=== PATIENT | male | born 1930 | race Caucasian/White ===

== ENCOUNTER 2019-07-06 15:27 | Inpatient (IN) | payer MEDICARE, BC ==
[2019-07-06] MEDS ORDERED: Sodium Chloride 0.9% 2.5 ML Syringe FLUSH PRN (15:35)
[2019-07-06] MEDS ORDERED: Ondansetron 4 MG/2 ML SDV IVPUSH PRN (15:35)
[2019-07-06] MEDS ORDERED: Acetaminophen 325 MG Tab PO PRN (15:35)
[2019-07-06] MEDS ORDERED: Albuterol/Ipratropium 3.0-0.5 MG/3 ML Neb Soln NEB PRN (15:35)
--- NOTE | 2019-07-06 15:40 | PCM.HP.2 ---
<Kelly aBca M - Last Filed: 07/06/19 16:52> H&P History of Present Illness - General Date of Service: 07/06/19 Admit Problem/Dx: Admission Diagnosis/Problem Admission Diagnosis/Problem Pneumonia Source of Information: Patient, Family (Son, Phillip at bedside), Old Records History Limitations: Reports: No Limitations - History of Present Illness Initial Comments - Free Text/Narative: This 88 noa old male with pmh of Dm type 2, HTN, hyperlipidemia, CKD, CAD, PVD with stenting to R leg and grafting to L leg presented initially to his PCP due to not feeling well. He reports he hasn't felt well for over a year, but reports the last 6 weeks he has been struggling. His son reports that he has noticed a sharp decline in health in the last few days, but definitely over the last few weeks he has noticed him not eating much at home. He reports chest pain with activity, reports new shortness of breath as well with productive cough Sputum has been green with some blood at times. He denies fevers or chills at home. Reports being more tired and fatigued than usual. He also report abdominal pain with diarrhea. The diarrhea though has been a normal since prostate radiation. He reports the diarrhea is about the same, but son reports he has been more incontinent with stools recently, but he is unsure if this is due to the generalized weakness or from increased stools. No urinary concerns. No focal neurologic concerns. Reports generalized weakness that has progressively worsened, he has started using his walker at home. He reports he used to smoke but quit in 1988, no alcohol use. In the clinic, no leukocytosis noted, hgb 12.7, baseline appears to be 9-10. platelets 216. Na 137, K+5.1, BUN 70, Cr 3.64, baseline is 30s and 1.8 respectively. AST 158, ALT 82, and alk phos 289. CXR appears to have significant RUL infiltrate noted, report pending. In the clinic he was noted to be hypoxic on RA, 83%. Admission recommended. He will be admitted with acute hypoxic respiratory failure, CAP, LENNY dehydration and generalized weakness. PCP, Dr Huston - Related Data Allergies/Adverse Reactions: Allergies Allergy/AdvReac Type Severity Reaction Status Date / Time aspirin Allergy Mild Headache Verified 07/06/19 16:14 Home Medications: Home Meds Acetaminophen 650 mg PO Q4HR PRN 07/06/19 [History] Atenolol 100 mg PO DAILY 07/06/19 [History] Cholecalciferol (Vitamin D3) [Vitamin D3] 2,000 unit PO DAILY 07/06/19 [History] Cilostazol 100 mg PO BID 07/06/19 [History] Doxazosin [Doxazosin Mesylate] 4 mg PO DAILY 07/06/19 [History] Glimepiride [Amaryl] 1 mg PO DAILY 07/06/19 [History] Lutein/Minerals/Vit A,C & E [Ocuvite] 1 tab PO DAILY 07/06/19 [History] Multivitamin [Daily Multiple Vitamin] 1 each PO DAILY 07/06/19 [History] Multivitamin [Daily Multiple Vitamin] 1 tab PO DAILY 07/06/19 [History] Simvastatin 20 mg PO BEDTIME 07/06/19 [History] amLODIPine [Norvasc] 10 mg PO DAILY 07/06/19 [History] Past Medical History Cardiovascular History: Reports: High Cholesterol, Hypertension, PVD, Stents ( coronary as well as R leg, L leg bypass grafting) Respiratory History: Reports: None. Denies: Asthma, COPD Gastrointestinal History: Reports: Chronic Diarrhea, Diverticulosis. Denies: GERD, GI Bleed Genitourinary History: Reports: Chronic Renal Insuffiency, Renal Calculus Musculoskeletal History: Reports: None Neurological History: Reports: None. Denies: CVA, TIA Endocrine/Metabolic History: Reports: Diabetes, Type II Oncologic (Cancer) History: Reports: Basal Cell Carcinoma, Prostate, Squamous Cell Carcinoma - Past Surgical History Cardiovascular Surgical History: Reports: Coronary Artery Stent, Vascular Surgery Male Surgical History: Reports: Other (See Below) (prostate radiation) Social & Family History - Tobacco Use Smoking Status *Q: Former Smoker Used Tobacco, but Quit: Yes Month/Year Tobacco Last Used: 1988 - Alcohol Use Alcohol Use History: No - Living Situation & Occupation Living situation: Reports: , Alone Occupation: Retired H&P Review of Systems - Review of Systems: Review Of Systems: See Below General: Reports: Malaise, Weakness, Fatigue, Decreased Appetite, Weight Loss. Denies: Fever, Chills HEENT: Reports: No Symptoms. Denies: Headaches, Sinus Congestion, Sore Throat, Vertigo, Visual Changes Pulmonary: Reports: Shortness of Breath, Pleuritic Chest Pain, Cough, Sputum Cardiovascular: Reports: Chest Pain, Dyspnea on Exertion. Denies: Palpitations , Edema, Lightheadedness Gastrointestinal: Reports: Abdominal Pain, Anorexia, Diarrhea, Decreased Appetite. Denies: Black Stool, Bloody Stool, Nausea, Vomiting Genitourinary: Reports: No Symptoms. Denies: Dysuria, Frequency, Burning Musculoskeletal: Reports: No Symptoms Skin: Reports: No Symptoms Psychiatric: Reports: No Symptoms Neurological: Reports: No Symptoms Hematologic/Lymphatic: Reports: No Symptoms Immunologic: Reports: No Symptoms Exam - Exam Exam: See Below - Exam Quality Assessment: Supplemental Oxygen General: Alert, Oriented, Cooperative HEENT: Conjunctiva Clear, Posterior Pharynx Clear. No: Mucosa Moist & [place] (dry ) Neck: Supple, Trachea Midline, Full Range of Motion. No: Lymphadenopathy, JVD Lungs: Decreased Breath Sounds, Rhonchi Cardiovascular: Regular Rhythm, Normal S1, Normal S2, Bradycardia, Systolic Murmur GI/Abdominal Exam: Normal Bowel Sounds, Soft, Tender (diffusely) Extremities: Normal Inspection, Normal Range of Motion, Non-Tender, Pedal Edema (scant edema) Peripheral Pulses: 1+: Posterior Tibial (L), Posterior Tibial (R), Dorsalis Pedis (L), Dorsalis Pedis (R) Skin: Warm, Dry (shiny appearance to bilateral lower legs) Neuro Extensive - Mental Status: Alert, Oriented x3, Normal Mood/Affect Neuro Extensive - Motor, Sensory, Reflexes: CN II-XII Intact Psychiatric: Alert, Normal Affect, Normal Mood EKG INTERPRETATION EKG Date: 07/06/19 Rhythm: NSR Rate (Beats/Min): 51 P-Wave: Present QRS: Normal ST-T: Normal QT: Normal *Q Meaningful Use (ADM) - VTE Risk Assess *Q Each Risk Factor Represents 1 Point: Serious lung disease including pneumonia Total Score 1 Point Risk Factors: 1 Each Risk Factor Represents 2 Points: Malignancy (present or previous) Total Score 2 Point Risk Factors: 2 Each Risk Factor Represents 3 Points: Age 75 Years or Greater Total Score 3 Point Risk Factors: 3 Each Risk Factor Represents 5 Points: None Total Score 5 Point Risk Factors: 0 Venous Thromboembolism Risk Factor Score *Q: 6 - Problem List (1) Acute respiratory failure with hypoxia SNOMED Code(s): 86649421, 066603535 ICD Code: J96.01 - ACUTE RESPIRATORY FAILURE WITH HYPOXIA Status: Acute Current Visit: Yes (2) Community acquired pneumonia SNOMED Code(s): 788138325 ICD Code: J18.9 - PNEUMONIA, UNSPECIFIED ORGANISM Status: Acute Current Visit: Yes Qualifiers: Laterality: right Lung location: upper lobe of lung Qualified Code(s): J18.1 - Lobar pneumonia, unspecified organism (3) Failure to thrive in adult SNOMED Code(s): 328984391 ICD Code: R62.7 - ADULT FAILURE TO THRIVE Status: Acute Current Visit: Yes (4) Generalized weakness SNOMED Code(s): 16133746 ICD Code: R53.1 - WEAKNESS Status: Acute Current Visit: Yes (5) Dehydration SNOMED Code(s): 39572680 ICD Code: E86.0 - DEHYDRATION Status: Acute Current Visit: Yes (6) Acute kidney injury SNOMED Code(s): 64627788, 30188958 ICD Code: N17.9 - ACUTE KIDNEY FAILURE, UNSPECIFIED Status: Acute Current Visit: Yes (7) Transaminitis SNOMED Code(s): 284404282, 230465108 ICD Code: R74.0 - NONSPEC ELEV OF LEVELS OF TRANSAMNS & LACTIC ACID DEHYDRGNSE Status: Acute Current Visit: Yes (8) Diarrhea SNOMED Code(s): 81949672 ICD Code: R19.7 - DIARRHEA, UNSPECIFIED Status: Chronic Current Visit: Yes (9) HTN (hypertension) SNOMED Code(s): 94340413 ICD Code: I10 - ESSENTIAL (PRIMARY) HYPERTENSION Status: Chronic Current Visit: Yes Qualifiers: Hypertension type: essential hypertension Qualified Code(s): I10 - Essential (primary) hypertension (10) CAD (coronary artery disease) SNOMED Code(s): 76228867 ICD Code: I25.10 - ATHSCL HEART DISEASE OF [place] CORONARY ARTERY W/O ANG PCTRS Status: Chronic Current Visit: Yes (11) PVD (peripheral vascular disease) SNOMED Code(s): 199405705 ICD Code: I73.9 - PERIPHERAL VASCULAR DISEASE, UNSPECIFIED Status: Chronic Current Visit: Yes (12) History of coronary artery stent placement SNOMED Code(s): 320390660, 273919946 ICD Code: Z95.5 - PRESENCE OF CORONARY ANGIOPLASTY IMPLANT AND GRAFT Status : Chronic Current Visit: Yes (13) S/P peripheral artery angioplasty with stent placement SNOMED Code(s): 51133575662875533, 86366960333360045 ICD Code: Z95.820 - PERIPHERAL VASCULAR ANGIOPLASTY STATUS W IMPLANTS AND GRAFTS Status: Chronic Current Visit: Yes (14) Diabetes type 2, controlled SNOMED Code(s): 31470105, 801051075 ICD Code: E11.9 - TYPE 2 DIABETES MELLITUS WITHOUT COMPLICATIONS Status: Chronic Current Visit: Yes Qualifiers: Diabetes mellitus manager terminal insulin use: without manager terminal use Problem List Initiated/Reviewed/Updated: Yes Orders Last 24hrs: Active Orders 24 hr Category Date Time Status Patient Status [ADT] Routine ADT 07/06/19 15:35 Ordered Ambulate [RC] ASDIRECTED Care 07/06/19 15:35 Ordered Intake and Output [RC] QSHIFT Care 07/06/19 15:36 Ordered Oxygen Therapy [RC] PRN Care 07/06/19 15:35 Ordered RT Aerosol Therapy [RC] ASDIRECTED Care 07/06/19 15:39 Ordered Up With Assistance [RC] ASDIRECTED Care 07/06/19 15:35 Ordered VTE/DVT Education [RC] PER UNIT ROUTINE Care 07/06/19 15:35 Ordered Vital Signs [RC] Q4H Care 07/06/19 15:35 Ordered Heart Healthy Diet [DIET] Diet 07/06/19 Dinner Ordered BASIC METABOLIC PANEL,BMP [CHEM] AM Lab 07/07/19 05:11 Ordered CBC WITH AUTO DIFF [HEME] AM Lab 07/07/19 05:11 Ordered CULTURE SPUTUM + SMEAR [RM] Stat Lab 07/06/19 15:35 Ordered Acetaminophen [Tylenol] Med 07/06/19 15:35 Ordered 650 mg PO Q4H PRN Albuterol/Ipratropium [DuoNeb 3.0-0.5 MG/3 ML] Med 07/06/19 15:35 Ordered 3 ml NEB Q4HRRT PRN Ondansetron [Zofran] Med 07/06/19 15:35 Ordered 4 mg IVPUSH Q4H PRN Sodium Chloride 0.9% [Saline Flush] Med 07/06/19 15:35 Ordered 2.5 ml FLUSH ASDIRECTED PRN Saline Lock Insert [OM.PC] Routine Oth 07/06/19 15:35 Ordered Medication Orders Acetaminophen (Tylenol) 650 mg PO Q4H PRN PRN Reason: Pain (mild 1-3) Albuterol/Ipratropium (Duoneb 3.0-0.5 Mg/3 Ml) 3 ml NEB Q4HRRT PRN PRN Reason: Shortness Of Breath/wheezing Ondansetron HCl (Zofran) 4 mg IVPUSH Q4H PRN PRN Reason: Nausea Sodium Chloride (Saline Flush) 2.5 ml FLUSH ASDIRECTED PRN PRN Reason: Keep Vein Open Assessment/Plan Comment:: This 88 year old male admitted with acute respiratory failure with hypoxia, CAP , dehydration and LENNY 1. Acute respiratory failure with hypoxia: Oxygen PRN to keep sats 90%. Encourage IS use. Treat CAP 2. CAP: BC and sputum culture pending. Will obtain lactic acid and influenza swab. Start Rocephin and Doxcycline, due to high number of QT prolonging medications. No leukocytosis noted. Symptoms concerning for malignancy. Will obtain chest CT with out contrast due to LENNY. 3. LENNY: renal function worse than baseline. Will give 250 ml bolus now and then give gentle hydration with NS 75. Monitor in am. Hold nephrotoxic medications. 4. Dehydration: IVF hydration, monitor labwork in am. 5. Abdominal pain/diarrhea: Elevated transaminitis, will obtain CT of abd/ pelvis. Stool cultures. 6. Chest pain: May be pleuritic in nature, EKG Sinus cachorro with no ischemic changes. Troponin ordered and will be trended. Monitor on telemetry. 7. HTN: Blood borderline, will hold medications as well as Cilostazol this evening. Monitor overnight and in am. 8. CAD/PVD: Stable, will monitor symptoms. Does have claudication with ambulation. 9. DM Type 2: Hold PO medications. Novolog SSI. VTE prophylaxis: Heparin Dispo: 3 days Discussed code status with patient, he would like to be a CODE level III, DNR/ DNI status. <Bakari Jaramillo - Last Filed: 07/06/19 18:03> H&P History of Present Illness - General Admit Problem/Dx: Admission Diagnosis/Problem Admission Diagnosis/Problem Pneumonia I have examined the patient independently of Kelly Baca CNP. I have reviewed and approval of the plan of care as outlined for this patient by her. I have discussed the case with her. Please see orders. I've also reviewed the CT exam he does have significant right-sided pleural effusion along with possible mass. Exam - Vital Signs Vital Signs: Last Vital Signs Temp 35.8 C 07/06/19 16:00 Pulse 54 L 07/06/19 16:00 Resp 16 07/06/19 16:00 BP 113/55 L 07/06/19 16:00 Pulse Ox 94 L 07/06/19 16:00 - Patient Data Lab Results Last 24 hrs: Laboratory Results - last 24 hr 07/06/19 07/06/19 Range/Units 16:25 16:25 Lactate 1.9 (0.20-2.00) mmol/L Troponin I < 0.050 (0.000-0.056) ng/mL Orders Last 24hrs: Active Orders 24 hr Category Date Time Status Patient Status [ADT] Routine ADT 07/06/19 15:35 Active Ambulate [RC] ASDIRECTED Care 07/06/19 15:35 Active Blood Glucose Check, Bedside [RC] TIDAC Care 07/06/19 16:15 Active Daily Weight [Height and Weight] [RC] DAILY Care 07/06/19 16:56 Active EKG Documentation Completion [RC] STAT Care 07/06/19 16:03 Active Influenza Vaccine Charge [RC] .DISCHARGE Care 07/06/19 17:33 Active Intake and Output [RC] QSHIFT Care 07/06/19 15:36 Active Oxygen Therapy [RC] PRN Care 07/06/19 15:35 Active RT Aerosol Therapy [RC] ASDIRECTED Care 07/06/19 15:39 Active Telemetry Monitoring [Cardiac Monitoring] [RC] Q8H Care 07/06/19 16:05 Active Up With Assistance [RC] ASDIRECTED Care 07/06/19 15:35 Active VTE/DVT Education [RC] PER UNIT ROUTINE Care 07/06/19 15:35 Active Vital Signs [RC] Q4H Care 07/06/19 15:35 Active Full Liquid Diet [DIET] Diet 07/07/19 Breakfast Active Abdomen Pelvis wo Cont [CT] Urgent Exams 07/06/19 16:05 Taken Chest wo Cont [CT] Urgent Exams 07/06/19 16:05 Taken BASIC METABOLIC PANEL,BMP [CHEM] AM Lab 07/07/19 05:11 Ordered CBC WITH AUTO DIFF [HEME] AM Lab 07/07/19 05:11 Ordered CDIFF TOX A+B [OP] Routine Lab 07/06/19 16:11 Ordered CREATININE,URINE RAND [URCHEM] Routine Lab 07/06/19 16:13 Ordered CULTURE BLOOD [BC] Stat Lab 07/06/19 16:25 Received CULTURE BLOOD [BC] Stat Lab 07/06/19 16:37 Received CULTURE SPUTUM + SMEAR [RM] Stat Lab 07/06/19 15:35 Ordered CULTURE STOOL + CAMPY+SHIGATOX [RM] Routine Lab 07/06/19 16:11 Ordered INFLUENZA A+B AG SCREEN [RM] Urgent Lab 07/06/19 16:14 Ordered SODIUM,URINE RANDOM [URCHEM] Routine Lab 07/06/19 16:13 Ordered TROPONIN I [CHEM] Q6H Lab 07/06/19 23:00 Ordered TROPONIN I [CHEM] Q6H Lab 07/07/19 05:00 Ordered UA RFX JUDE AND CULT IF INDIC [URIN] Urgent Lab 07/06/19 16:13 Ordered Acetaminophen [Tylenol] Med 07/06/19 15:35 Active 650 mg PO Q4H PRN Albuterol/Ipratropium [DuoNeb 3.0-0.5 MG/3 ML] Med 07/06/19 15:35 Active 3 ml NEB Q4HRRT PRN Doxycycline [Vibramycin] Med 07/06/19 16:30 Active 100 mg PO BID Heparin Sodium Med 07/06/19 17:00 Active 5,000 units SUBCUT Q12H Insulin Aspart [NovoLOG] Med 07/06/19 17:00 Active See Protocol SUBCUT TIDAC Morphine Med 07/06/19 16:55 Active 1 mg IVPUSH Q4H PRN Multivitamins [Tab-A-Jaci] Med 07/07/19 09:00 Active 1 tab PO DAILY Ondansetron [Zofran] Med 07/06/19 15:35 Active 4 mg IVPUSH Q4H PRN Patient's Own Medication [Ptom] Med 07/07/19 09:00 Active 1 each PO DAILY Sodium Chloride 0.9% [Normal Saline] 1,000 ml Med 07/06/19 16:15 Active IV ASDIRECTED Sodium Chloride 0.9% [Saline Flush] Med 07/06/19 15:35 Active 2.5 ml FLUSH ASDIRECTED PRN cefTRIAXone [Rocephin in Dextrose,Iso-Osm 1 GM/50 ML] 1 Med 07/06/19 16:30 Active gm Premix Bag 1 bag IV Q24H Blood Culture x2 Reflex Set [OM.PC] Stat Oth 07/06/19 16:03 Ordered Isolation [COMM] Stat Oth 07/06/19 16:11 Ordered Saline Lock Insert [OM.PC] Routine Oth 07/06/19 15:35 Ordered Resuscitation Status Routine Resus Stat 07/06/19 16:03 Ordered Medication Orders Acetaminophen (Tylenol) 650 mg PO Q4H PRN PRN Reason: Pain (mild 1-3) Albuterol/Ipratropium (Duoneb 3.0-0.5 Mg/3 Ml) 3 ml NEB Q4HRRT PRN PRN Reason: Shortness Of Breath/wheezing Doxycycline Hyclate (Vibramycin) 100 mg PO BID [facility] Last Admin: 07/06/19 17:14 Dose: 100 mg Heparin Sodium (Porcine) (Heparin Sodium) 5,000 units SUBCUT Q12H [facility] Last Admin: 07/06/19 17:14 Dose: 5,000 units Sodium Chloride (Normal Saline) 1,000 mls @ 75 mls/hr IV ASDIRECTED [facility] Last Admin: 07/06/19 17:01 Dose: 75 mls/hr Ceftriaxone Sodium/Dextrose 1 (gm/ Premix) 50 mls @ 100 mls/hr IV Q24H [facility] Insulin Aspart (Novolog) 0 unit SUBCUT TIDAC [facility]; Protocol Morphine Sulfate (Morphine) 1 mg IVPUSH Q4H PRN PRN Reason: Pain Multivitamins/Minerals/Vitamin C (Tab-A-Jaci) 1 tab PO DAILY [facility] Ondansetron HCl (Zofran) 4 mg IVPUSH Q4H PRN PRN Reason: Nausea Lutein/Minerals/Vit (A,C & E) 1 each PO DAILY [facility] Sodium Chloride (Saline Flush) 2.5 ml FLUSH ASDIRECTED PRN PRN Reason: Keep Vein Open
[2019-07-06] MEDS ORDERED: Sodium Chloride 0.9% 250 ML IV SCH (16:45)
[2019-07-06] MEDS ORDERED: Morphine 2 MG/ML Syringe IVPUSH PRN (16:55)
[2019-07-06] MEDS: Sodium Chloride 0.9% 1,000 ML IV SCH (17:01)
[2019-07-06] MEDS: Heparin Sodium 5,000 Units/ML Vial SUBCUT SCH (17:14)
[2019-07-06] MEDS: Doxycycline 100 MG Cap PO SCH ×2 (17:14→21:08)
[2019-07-06] MEDS: cefTRIAXone 1 GM in Premix Bag 1 BAG IV SCH (18:04)
--- NOTE | 2019-07-06 18:12 | CT ---
INDICATION: Dyspnea and chest pain TECHNIQUE: CT chest without i.v. contrast. Coronal and sagittal reformats were obtained. COMPARISON: 07/06/2019 FINDINGS: Cardiovascular: The heart has an unremarkable appearance and size. The pulmonary arteries are unremarkable in appearance. No sign of aneurysm seen in the thoracic aorta. The presence of aortic dissection cannot be evaluated without the use of intravenous contrast. Severe atherosclerotic calcifications are noted in the coronary arteries. Mediastinum: A right hilar spring mass is present measuring approximately 2.6 cm in diameter and a right paratracheal and precarinal lymph node mass is present measuring 3.6 cm. Lung: There is a masslike consolidation in the right upper lobe measuring 7 cm in diameter with a hypodense posterior focus measuring 2.7 cm. Paraseptal and centrilobular emphysema seen in the apices bilaterally. Subpleural patchy areas of fibrosis is seen in the mid lower lung zones bilaterally. Passive atelectasis is noted in the right lower lobe. There is a 9 mm calcified granuloma in the right middle lobe. Pleura and pericardium: Large right pleural effusion is present with pleural-based soft tissue nodules seen, consistent with malignant effusion and pleural metastases. No significant pericardial effusion is present. Chest wall and axilla: No mass or adenopathy seen. Bone: Unremarkable for age. Upper abdomen: Unremarkable. IMPRESSIONS: 1. There is a masslike consolidation in the right upper lobe measuring 7 cm in diameter with a hypodense posterior focus measuring 2.7 cm. Findings may be due to a necrotic pulmonary malignancy. 2. Large right pleural effusion is present with pleural-based soft tissue nodules seen, consistent with malignant effusion and pleural metastases. Innumerable hypodense lesions are present within the visualized liver and consistent with metastatic disease. Impression 3. A right hilar spring mass is present measuring approximately 2.6 cm in diameter and a right paratracheal and precarinal lymph node mass is present measuring 3.6 cm. Dictated by Jaylan Anna MD @ 07/06/2019 6:09:55 PM Please note that all CT scans at this facility use dose modulation, iterative reconstruction, and/or weight-based dosing when appropriate to reduce radiation dose to as low as reasonably achievable. Dictated by: Jaylan Anna MD @ 07/06/2019 18:10:04 (Electronically Signed)
--- NOTE | 2019-07-06 18:19 | CT ---
INDICATION: Abdominal pain, diarrhea TECHNIQUE: CT Abdomen and pelvis without i.v. contrast. Coronal and sagittal reformats were obtained. COMPARISON: None FINDINGS: Liver: Innumerable hypodense liver lesions are present with the largest measuring 6.3 cm, most likely due to metastatic disease. Spleen: Unremarkable. Pancreas: Unremarkable. Gallbladder: Unremarkable. Kidney: There is a parapelvic cyst present in the right kidney measuring 6.2 x 2.8 cm. Cortical renal cysts are also noted measuring up to 9.5 x 5.8 cm. Adrenal: Unremarkable. Bowel: Severe diverticulosis is present in the descending and sigmoid colon with no evidence of diverticulitis. The appendix is not identified. Vascular: Severe diffuse atherosclerotic calcifications of the abdominal aorta and its tributaries are present. 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 Lymph: Unremarkable. Peritoneum: Unremarkable. No pneumoperitoneum is seen. No significant ascites is noted. Pelvis: Unremarkable. Soft tissue: Unremarkable. Bone: Unremarkable for age. IMPRESSION: 1. Innumerable hypodense liver lesions are present with the largest measuring 6.3 cm, most likely due to metastatic disease. Dictated by Jaylan Anna MD @ 07/06/2019 6:17:45 PM Please note that all CT scans at this facility use dose modulation, iterative reconstruction, and/or weight-based dosing when appropriate to reduce radiation dose to as low as reasonably achievable. Dictated by: Jaylan Anna MD @ 07/06/2019 18:17:54 (Electronically Signed)
[2019-07-06] MEDS: Insulin Aspart 100 Units/ML 3 ML Pen SUBCUT SCH (18:30)
[2019-07-07] MEDS: Sodium Chloride 0.9% 1,000 ML IV SCH ×2 (04:17→16:45)
[2019-07-07] MEDS: Heparin Sodium 5,000 Units/ML Vial SUBCUT SCH ×2 (04:57→16:56)
[2019-07-07 05:19] LABS: CARBON DIOXIDE,CO2 20.5 mmol/L (21.0-32.0); POTASSIUM,K 4.6 mmol/L (3.5-5.1)
[2019-07-07] MEDS: Insulin Aspart 100 Units/ML 3 ML Pen SUBCUT SCH (06:41)
[2019-07-07] MEDS: Doxycycline 100 MG Cap PO SCH ×2 (08:13→20:45)
[2019-07-07] MEDS ORDERED: LUTEIN PO SCH (09:00)
[2019-07-07] MEDS ORDERED: VIT A C PO SCH (09:00)
[2019-07-07] MEDS ORDERED: [UNRECOGNIZED DRUG - OTHER] PO SCH (09:00)
[2019-07-07] MEDS ORDERED: Multivitamin Tab PO SCH (09:00)
[2019-07-07] MEDS ORDERED: MINERALS PO SCH (09:00)
--- NOTE | 2019-07-07 10:22 | PCM.PN ---
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 Subjective Update: Feeling a little better, no major improvement. Pain has improved though. Hungry today. Functional Status: Reports: Pain Controlled, Tolerating Diet, Ambulating (with walker and assist), Urinating - Review of Systems General: Reports: Weakness, Fatigue, Malaise HEENT: Reports: No Symptoms. Denies: Headaches, Visual Changes Pulmonary: Reports: Shortness of Breath, Cough, Hemoptysis. Denies: Sputum Cardiovascular: Reports: No Symptoms. Denies: Chest Pain Gastrointestinal: Reports: Diarrhea (chronic). Denies: Abdominal Pain, Nausea, Vomiting Musculoskeletal: Reports: No Symptoms Skin: Reports: No Symptoms Neurological: Reports: No Symptoms Psychiatric: Reports: No Symptoms - Patient Data Vitals - Most Recent: Last Vital Signs Temp 95.9 F 07/07/19 08:18 Pulse 53 L 07/07/19 08:18 Resp 20 07/07/19 08:18 BP 142/65 H 07/07/19 08:18 Pulse Ox 94 L 07/07/19 08:18 Weight - Most Recent: 67.585 kg I&O - Last 24 Hours: Intake & Output 07/06/19 07/07/19 07/07/19 22:59 06:59 14:59 Intake Total 100 728 Balance 100 728 Lab Results Last 24 Hours: Laboratory Results - last 24 hr 07/06/19 07/06/19 07/06/19 Range/Units 16:25 16:25 17:17 WBC (4.0-11.0) K/uL RBC (4.50-5.90) M/uL Hgb (13.0-17.0) g/dL Hct (38.0-50.0) % MCV (80.0-98.0) fL MCH (27.0-32.0) pg MCHC (31.0-37.0) g/dL RDW Std Deviation (28.0-62.0) fl RDW Coeff of Abundio (11.0-15.0) % Plt Count (150-400) K/uL MPV (7.40-12.00) fL Neut % (Auto) (48.0-80.0) % Lymph % (Auto) (16.0-40.0) % Mclennan % (Auto) (0.0-15.0) % Eos % (Auto) (0.0-7.0) % Baso % (Auto) (0.0-1.5) % Neut # (Auto) (1.4-5.7) K/uL Lymph # (Auto) (0.6-2.4) K/uL Mclennan # (Auto) (0.0-0.8) K/uL Eos # (Auto) (0.0-0.7) K/uL Baso # (Auto) (0.0-0.1) K/uL Nucleated RBC % /100WBC Nucleated RBCs # K/uL Lactate 1.9 (0.20-2.00) mmol/L Sodium (136-148) mmol/L Potassium (3.5-5.1) mmol/L Chloride (98-107) mmol/L Carbon Dioxide (21.0-32.0) mmol/L BUN (7.0-18.0) mg/dL Creatinine (0.8-1.3) mg/dL Est Cr Clr Drug Dosing mL/min Estimated GFR (MDRD) ml/min Glucose (74-106) mg/dL POC Glucose 183 H (60-110) mg/dL Calcium (8.5-10.1) mg/dL Troponin I < 0.050 (0.000-0.056) ng/mL 07/06/19 07/07/19 07/07/19 Range/Units 22:50 04:58 04:58 WBC 7.94 (4.0-11.0) K/uL RBC 3.35 L (4.50-5.90) M/uL Hgb 9.7 L (13.0-17.0) g/dL Hct 29.3 L (38.0-50.0) % MCV 87.5 (80.0-98.0) fL MCH 29.0 (27.0-32.0) pg MCHC 33.1 (31.0-37.0) g/dL RDW Std Deviation 50.6 (28.0-62.0) fl RDW Coeff of Abundio 16 H (11.0-15.0) % Plt Count 189 (150-400) K/uL MPV 9.90 (7.40-12.00) fL Neut % (Auto) 75.9 (48.0-80.0) % Lymph % (Auto) 15.6 L (16.0-40.0) % Mclennan % (Auto) 7.9 (0.0-15.0) % Eos % (Auto) 0.3 (0.0-7.0) % Baso % (Auto) 0.3 (0.0-1.5) % Neut # (Auto) 6.0 H (1.4-5.7) K/uL Lymph # (Auto) 1.2 (0.6-2.4) K/uL Mclennan # (Auto) 0.6 (0.0-0.8) K/uL Eos # (Auto) 0.0 (0.0-0.7) K/uL Baso # (Auto) 0.0 (0.0-0.1) K/uL Nucleated RBC % 0.0 /100WBC Nucleated RBCs # 0 K/uL Lactate (0.20-2.00) mmol/L Sodium 140 (136-148) mmol/L Potassium 4.6 (3.5-5.1) mmol/L Chloride 107 (98-107) mmol/L Carbon Dioxide 20.5 L (21.0-32.0) mmol/L BUN 67 H (7.0-18.0) mg/dL Creatinine 3.7 H (0.8-1.3) mg/dL Est Cr Clr Drug Dosing 13.35 mL/min Estimated GFR (MDRD) 15.6 ml/min Glucose 157 H (74-106) mg/dL POC Glucose (60-110) mg/dL Calcium 8.5 (8.5-10.1) mg/dL Troponin I < 0.050 (0.000-0.056) ng/mL 07/07/19 07/07/19 Range/Units 04:58 06:27 WBC (4.0-11.0) K/uL RBC (4.50-5.90) M/uL Hgb (13.0-17.0) g/dL Hct (38.0-50.0) % MCV (80.0-98.0) fL MCH (27.0-32.0) pg MCHC (31.0-37.0) g/dL RDW Std Deviation (28.0-62.0) fl RDW Coeff of Abundio (11.0-15.0) % Plt Count (150-400) K/uL MPV (7.40-12.00) fL Neut % (Auto) (48.0-80.0) % Lymph % (Auto) (16.0-40.0) % Mclennan % (Auto) (0.0-15.0) % Eos % (Auto) (0.0-7.0) % Baso % (Auto) (0.0-1.5) % Neut # (Auto) (1.4-5.7) K/uL Lymph # (Auto) (0.6-2.4) K/uL Mclennan # (Auto) (0.0-0.8) K/uL Eos # (Auto) (0.0-0.7) K/uL Baso # (Auto) (0.0-0.1) K/uL Nucleated RBC % /100WBC Nucleated RBCs # K/uL Lactate (0.20-2.00) mmol/L Sodium (136-148) mmol/L Potassium (3.5-5.1) mmol/L Chloride (98-107) mmol/L Carbon Dioxide (21.0-32.0) mmol/L BUN (7.0-18.0) mg/dL Creatinine (0.8-1.3) mg/dL Est Cr Clr Drug Dosing mL/min Estimated GFR (MDRD) ml/min Glucose (74-106) mg/dL POC Glucose 140 H (60-110) mg/dL Calcium (8.5-10.1) mg/dL Troponin I < 0.050 (0.000-0.056) ng/mL Phong Results Last 24 Hours: Microbiology 07/07/19 00:15 Gram Stain - Preliminary Sputum - Expectorated Med Orders - Current: Current Medications Acetaminophen (Tylenol) 650 mg PO Q4H PRN PRN Reason: Pain (mild 1-3) Albuterol/Ipratropium (Duoneb 3.0-0.5 Mg/3 Ml) 3 ml NEB Q4HRRT PRN PRN Reason: Shortness Of Breath/wheezing Doxycycline Hyclate (Vibramycin) 100 mg PO BID [facility] Last Admin: 07/07/19 08:13 Dose: 100 mg Heparin Sodium (Porcine) (Heparin Sodium) 5,000 units SUBCUT Q12H [facility] Last Admin: 07/07/19 04:57 Dose: 5,000 units Sodium Chloride (Normal Saline) 1,000 mls @ 75 mls/hr IV ASDIRECTED [facility] Last Admin: 07/07/19 04:17 Dose: 75 mls/hr Ceftriaxone Sodium/Dextrose 1 (gm/ Premix) 50 mls @ 100 mls/hr IV Q24H [facility] Last Admin: 07/06/19 18:04 Dose: 100 mls/hr Insulin Aspart (Novolog) 0 unit SUBCUT TIDAC [facility]; Protocol Last Admin: 07/07/19 06:41 Dose: Not Given Morphine Sulfate (Morphine) 1 mg IVPUSH Q4H PRN PRN Reason: Pain Multivitamins/Minerals/Vitamin C (Tab-A-Jaci) 1 tab PO DAILY [facility] Last Admin: 07/07/19 08:13 Dose: 1 tab Ondansetron HCl (Zofran) 4 mg IVPUSH Q4H PRN PRN Reason: Nausea Lutein/Minerals/Vit (A,C & E) 1 each PO DAILY [facility] Last Admin: 07/07/19 08:13 Dose: Not Given Sodium Chloride (Saline Flush) 2.5 ml FLUSH ASDIRECTED PRN PRN Reason: Keep Vein Open Discontinued Medications Sodium Chloride (Normal Saline) 250 mls @ 999 mls/hr IV ASDIRECTED [facility] Stop: 07/06/19 17:01 Influenza Virus Vaccine (Pharmacy To Dose - Influenza Vaccine) 1 each IM ONETIME ONE Stop: 07/06/19 17:33 Influenza Virus Vaccine (Fluzone High-Dose 2018- Syringe) 180 mcg IM .ONCE ONE Stop: 07/06/19 17:46 - Exam Quality Assessment: Supplemental Oxygen General: Alert, Oriented, Cooperative, No Acute Distress Lungs: Decreased Breath Sounds (R lung huston). No: Normal Respiratory Effort ( dyspnea noted with speech), Wheezing Cardiovascular: Regular Rhythm, Bradycardia GI/Abdominal Exam: Normal Bowel Sounds, Soft, Non-Tender Back Exam: Normal Inspection, Full Range of Motion Extremities: Normal Inspection, Normal Range of Motion, Non-Tender Neurological: No New Focal Deficit Psy/Mental Status: Alert, Normal Affect, Normal Mood - Problem List & Annotations (1) Pulmonary malignant neoplasm SNOMED Code(s): 666485624 Code(s): C34.90 - MALIGNANT NEOPLASM OF UNSP PART OF UNSP BRONCHUS OR LUNG Status: Suspected Current Visit: Yes (2) Liver metastasis Status: Acute Current Visit: Yes (3) Acute respiratory failure with hypoxia SNOMED Code(s): 66534422, 708535259 Code(s): J96.01 - ACUTE RESPIRATORY FAILURE WITH HYPOXIA Status: Acute Current Visit: Yes (4) Community acquired pneumonia SNOMED Code(s): 007171591 Code(s): J18.9 - PNEUMONIA, UNSPECIFIED ORGANISM Status: Acute Current Visit: Yes Qualifiers: Laterality: right Lung location: upper lobe of lung Qualified Code(s): J18.1 - Lobar pneumonia, unspecified organism (5) Failure to thrive in adult SNOMED Code(s): 461739349 Code(s): R62.7 - ADULT FAILURE TO THRIVE Status: Acute Current Visit: Yes (6) Generalized weakness SNOMED Code(s): 15107176 Code(s): R53.1 - WEAKNESS Status: Acute Current Visit: Yes (7) Dehydration SNOMED Code(s): 53359150 Code(s): E86.0 - DEHYDRATION Status: Acute Current Visit: Yes (8) Acute kidney injury SNOMED Code(s): 03999743, 24556737 Code(s): N17.9 - ACUTE KIDNEY FAILURE, UNSPECIFIED Status: Acute Current Visit: Yes (9) Transaminitis SNOMED Code(s): 767339976, 306323513 Code(s): R74.0 - NONSPEC ELEV OF LEVELS OF TRANSAMNS & LACTIC ACID DEHYDRGNSE Status: Acute Current Visit: Yes (10) Diarrhea SNOMED Code(s): 38176275 Code(s): R19.7 - DIARRHEA, UNSPECIFIED Status: Chronic Current Visit: Yes (11) HTN (hypertension) SNOMED Code(s): 87828970 Code(s): I10 - ESSENTIAL (PRIMARY) HYPERTENSION Status: Chronic Current Visit: Yes Qualifiers: Hypertension type: essential hypertension Qualified Code(s): I10 - Essential (primary) hypertension (12) CAD (coronary artery disease) SNOMED Code(s): 31416742 Code(s): I25.10 - ATHSCL HEART DISEASE OF [place] CORONARY ARTERY W/O ANG PCTRS Status: Chronic Current Visit: Yes (13) PVD (peripheral vascular disease) SNOMED Code(s): 630753414 Code(s): I73.9 - PERIPHERAL VASCULAR DISEASE, UNSPECIFIED Status: Chronic Current Visit: Yes (14) History of coronary artery stent placement SNOMED Code(s): 161022074, 006837875 Code(s): Z95.5 - PRESENCE OF CORONARY ANGIOPLASTY IMPLANT AND GRAFT Status : Chronic Current Visit: Yes (15) S/P peripheral artery angioplasty with stent placement SNOMED Code(s): 28231481891963619, 70316685452567087 Code(s): Z95.820 - PERIPHERAL VASCULAR ANGIOPLASTY STATUS W IMPLANTS AND GRAFTS Status: Chronic Current Visit: Yes (16) Diabetes type 2, controlled SNOMED Code(s): 09673647, 341770184 Code(s): E11.9 - TYPE 2 DIABETES MELLITUS WITHOUT COMPLICATIONS Status: Chronic Current Visit: Yes Qualifiers: Diabetes mellitus residential insulin use: without long lines operator use - Problem List Review Problem List Initiated/Reviewed/Updated: Yes - My Orders Last 24 Hours: My Active Orders 07/06/19 15:35 Patient Status [ADT] Routine Ambulate [RC] ASDIRECTED Oxygen Therapy [RC] PRN Up With Assistance [RC] ASDIRECTED VTE/DVT Education [RC] PER UNIT ROUTINE Vital Signs [RC] Q4H Acetaminophen [Tylenol] 650 mg PO Q4H PRN Albuterol/Ipratropium [DuoNeb 3.0-0.5 MG/3 ML] 3 ml NEB Q4HRRT PRN Ondansetron [Zofran] 4 mg IVPUSH Q4H PRN Sodium Chloride 0.9% [Saline Flush] 2.5 ml FLUSH ASDIRECTED PRN Saline Lock Insert [OM.PC] Routine 07/06/19 15:36 Intake and Output [RC] Q12H 07/06/19 15:39 RT Aerosol Therapy [RC] ASDIRECTED 07/06/19 16:03 Blood Culture x2 Reflex Set [OM.PC] Stat Resuscitation Status Routine 07/06/19 16:05 Telemetry Monitoring [Cardiac Monitoring] [RC] Q8H 07/06/19 16:11 CDIFF TOX A+B [OP] Routine CULTURE STOOL + CAMPY+SHIGATOX [RM] Routine Isolation [COMM] Stat 07/06/19 16:13 CREATININE,URINE RAND [URCHEM] Routine SODIUM,URINE RANDOM [URCHEM] Routine UA RFX PHONG AND CULT IF INDIC [URIN] Urgent 07/06/19 16:15 Blood Glucose Check, Bedside [RC] TIDAC Sodium Chloride 0.9% [Normal Saline] 1,000 ml IV ASDIRECTED 07/06/19 16:25 CULTURE BLOOD [BC] Stat 07/06/19 16:30 Doxycycline [Vibramycin] 100 mg PO BID cefTRIAXone [Rocephin in Dextrose,Iso-Osm 1 GM/50 ML] 1 gm Premix Bag 1 bag IV Q24H 07/06/19 16:37 CULTURE BLOOD [BC] Stat 07/06/19 16:55 Morphine 1 mg IVPUSH Q4H PRN 07/06/19 16:56 Daily Weight [Height and Weight] [RC] DAILY 07/06/19 17:00 Heparin Sodium 5,000 units SUBCUT Q12H Insulin Aspart [NovoLOG] See Protocol SUBCUT TIDAC 07/07/19 00:15 CULTURE SPUTUM + SMEAR [RM] Stat 07/07/19 09:00 Multivitamins [Tab-A-Jaci] 1 tab PO DAILY Patient's Own Medication [Ptom] 1 each PO DAILY 07/07/19 Breakfast Full Liquid Diet [DIET] - Plan Plan:: This 88 year old male admitted with acute respiratory failure with hypoxia, CAP , dehydration and LENNY 1. 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 CT revealed mass like consolidation in RU lobe measuring 7 cm, consideration is necrotic pulmonary malignancy. Large R pleural effusion with pleural soft tissue nodules noted, consistent with malignant effusion and pleural metastasis. CT abdomen revealed innumerable nodules to liver, consistent with metastasis. Discussed findings with Taz and his son Phillip at bedside this morning. He was given option of transfer for further diagnosis of lung mass/fluid and liver mets or continue with current treatment and speak with Hospice regarding end of life care. He was very adamant that he wanted no further treatment or procedures. He would like to be comfortable. Due to weakness and inability to care for himself at home, son and him had already discussed jail placement. We will work with case management and Hospice to arrange discharge plan. 2. CAP: BC and sputum culture pending. Continue Rocephin and Doxcycline for now. No leukocytosis noted. S 3. LENNY: no improvement, will monitor. Continue NS 75. Hold nephrotoxic medications. 4. Dehydration: Feels a little better. Continue NS today. 5. HTN: Improved with fluids. Will monitor. 6. CAD/PVD: Stable, will monitor symptoms. Does have claudication with ambulation. 7. DM Type 2: Hold PO meds. Will Stop SSI. BS stable. VTE prophylaxis: Heparin Dispo: 3 days Discussed code status with patient, he would like to be a CODE level III, DNR/ DNI status.
[2019-07-07] MEDS: cefTRIAXone 1 GM in Premix Bag 1 BAG IV SCH (16:45)
[2019-07-08] MEDS: Heparin Sodium 5,000 Units/ML Vial SUBCUT SCH (04:18)
[2019-07-08 05:48] LABS: POTASSIUM,K 4.8 mmol/L (3.5-5.1)
--- NOTE | 2019-07-08 08:01 | PCM.PN ---
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 Subjective Update: Doing ok this morning, denies pain, reports some shortness of breath. Spoke with him and son again, continues to request Comfort measures and has plans to go to [place] tomorrow for prison care. Functional Status: Reports: Pain Controlled, Tolerating Diet, Ambulating. Denies: Urinating - Review of Systems General: Reports: Fatigue, Malaise HEENT: Reports: No Symptoms. Denies: Sore Throat Pulmonary: Reports: Shortness of Breath. Denies: Cough Cardiovascular: Denies: Chest Pain Gastrointestinal: Denies: Abdominal Pain, Nausea, Vomiting Genitourinary: Reports: Other (very little urination) Musculoskeletal: Reports: No Symptoms Skin: Reports: No Symptoms Neurological: Reports: No Symptoms Psychiatric: Reports: No Symptoms - Patient Data Vitals - Most Recent: Last Vital Signs Temp 96.5 F 07/08/19 07:43 Pulse 54 L 07/08/19 07:43 Resp 20 07/08/19 07:43 BP 125/71 07/08/19 07:43 Pulse Ox 91 L 07/08/19 07:43 Weight - Most Recent: 68.991 kg I&O - Last 24 Hours: Intake & Output 07/07/19 07/08/19 07/08/19 22:59 06:59 14:59 Intake Total 1539 200 Output Total 200 100 Balance 1339 100 Lab Results Last 24 Hours: Laboratory Results - last 24 hr 07/08/19 Range/Units 05:10 Sodium 140 (136-148) mmol/L Potassium 4.8 (3.5-5.1) mmol/L Chloride 107 (98-107) mmol/L Carbon Dioxide 21.0 (21.0-32.0) mmol/L BUN 74 H (7.0-18.0) mg/dL Creatinine 3.8 H (0.8-1.3) mg/dL Est Cr Clr Drug Dosing 12.85 mL/min Estimated GFR (MDRD) 15.1 ml/min Glucose 159 H (74-106) mg/dL Calcium 8.3 L (8.5-10.1) mg/dL Phong Results Last 24 Hours: Microbiology 07/06/19 16:37 Aerobic Blood Culture - Preliminary Blood - Venous - Lab Draw NO GROWTH AFTER 1 DAY Anaerobic Blood Culture - Preliminary NO GROWTH AFTER 1 DAY 07/06/19 16:25 Aerobic Blood Culture - Preliminary Blood - Venous NO GROWTH AFTER 1 DAY Anaerobic Blood Culture - Preliminary NO GROWTH AFTER 1 DAY 07/07/19 00:15 Gram Stain - Preliminary Sputum - Expectorated Med Orders - Current: Current Medications Acetaminophen (Tylenol) 650 mg PO Q4H PRN PRN Reason: Pain (mild 1-3) Albuterol/Ipratropium (Duoneb 3.0-0.5 Mg/3 Ml) 3 ml NEB Q4HRRT PRN PRN Reason: Shortness Of Breath/wheezing Doxycycline Hyclate (Vibramycin) 100 mg PO BID [facility] Last Admin: 07/07/19 20:45 Dose: 100 mg Heparin Sodium (Porcine) (Heparin Sodium) 5,000 units SUBCUT Q12H [facility] Last Admin: 07/08/19 04:18 Dose: 5,000 units Ceftriaxone Sodium/Dextrose 1 (gm/ Premix) 50 mls @ 100 mls/hr IV Q24H [facility] Last Admin: 07/07/19 16:45 Dose: 100 mls/hr Morphine Sulfate (Morphine) 1 mg IVPUSH Q4H PRN PRN Reason: Pain Ondansetron HCl (Zofran) 4 mg IVPUSH Q4H PRN PRN Reason: Nausea Sodium Chloride (Saline Flush) 2.5 ml FLUSH ASDIRECTED PRN PRN Reason: Keep Vein Open Discontinued Medications Sodium Chloride (Normal Saline) 1,000 mls @ 75 mls/hr IV ASDIRECTED [facility] Last Admin: 07/07/19 16:45 Dose: 75 mls/hr Sodium Chloride (Normal Saline) 250 mls @ 999 mls/hr IV ASDIRECTED [facility] Stop: 07/06/19 17:01 Influenza Virus Vaccine (Pharmacy To Dose - Influenza Vaccine) 1 each IM ONETIME ONE Stop: 07/06/19 17:33 Influenza Virus Vaccine (Fluzone High-Dose Syringe) 180 mcg IM .ONCE ONE Stop: 07/06/19 17:46 Insulin Aspart (Novolog) 0 unit SUBCUT TIDAC [facility]; Protocol Last Admin: 07/07/19 06:41 Dose: Not Given Multivitamins/Minerals/Vitamin C (Tab-A-Jaci) 1 tab PO DAILY [facility] Last Admin: 07/07/19 08:13 Dose: 1 tab Lutein/Minerals/Vit (A,C & E) 1 each PO DAILY [facility] Last Admin: 07/07/19 08:13 Dose: Not Given - Exam Quality Assessment: Supplemental Oxygen General: Alert, Oriented, Cooperative, No Acute Distress, Other (pallor and cahexia noted, ) Lungs: Decreased Breath Sounds. No: Normal Respiratory Effort (dyspnea) Cardiovascular: Regular Rhythm, Bradycardia GI/Abdominal Exam: Normal Bowel Sounds, Soft, Non-Tender Extremities: Normal Inspection, Normal Range of Motion, Non-Tender, No Pedal Edema Psy/Mental Status: Alert, Normal Affect, Normal Mood - Problem List & Annotations (1) Comfort measures only status SNOMED Code(s): 62196564478254 Code(s): Z51.5 - ENCOUNTER FOR PALLIATIVE CARE Status: Acute Current Visit: Yes (2) Pulmonary malignant neoplasm SNOMED Code(s): 518770542 Code(s): C34.90 - MALIGNANT NEOPLASM OF UNSP PART OF UNSP BRONCHUS OR LUNG Status: Suspected Current Visit: Yes (3) Liver metastasis Status: Acute Current Visit: Yes (4) Acute respiratory failure with hypoxia SNOMED Code(s): 37635118, 333087400 Code(s): J96.01 - ACUTE RESPIRATORY FAILURE WITH HYPOXIA Status: Acute Current Visit: Yes (5) Community acquired pneumonia SNOMED Code(s): 211990238 Code(s): J18.9 - PNEUMONIA, UNSPECIFIED ORGANISM Status: Acute Current Visit: Yes Qualifiers: Laterality: right Lung location: upper lobe of lung Qualified Code(s): J18.1 - Lobar pneumonia, unspecified organism (6) Failure to thrive in adult SNOMED Code(s): 803781463 Code(s): R62.7 - ADULT FAILURE TO THRIVE Status: Acute Current Visit: Yes (7) Generalized weakness SNOMED Code(s): 78887475 Code(s): R53.1 - WEAKNESS Status: Acute Current Visit: Yes (8) Dehydration SNOMED Code(s): 45784820 Code(s): E86.0 - DEHYDRATION Status: Acute Current Visit: Yes (9) Acute kidney injury SNOMED Code(s): 57950083, 66855477 Code(s): N17.9 - ACUTE KIDNEY FAILURE, UNSPECIFIED Status: Acute Current Visit: Yes (10) Transaminitis SNOMED Code(s): 828917873, 750497058 Code(s): R74.0 - NONSPEC ELEV OF LEVELS OF TRANSAMNS & LACTIC ACID DEHYDRGNSE Status: Acute Current Visit: Yes (11) Diarrhea SNOMED Code(s): 12360002 Code(s): R19.7 - DIARRHEA, UNSPECIFIED Status: Chronic Current Visit: Yes (12) HTN (hypertension) SNOMED Code(s): 92213174 Code(s): I10 - ESSENTIAL (PRIMARY) HYPERTENSION Status: Chronic Current Visit: Yes Qualifiers: Hypertension type: essential hypertension Qualified Code(s): I10 - Essential (primary) hypertension (13) CAD (coronary artery disease) SNOMED Code(s): 48869277 Code(s): I25.10 - ATHSCL HEART DISEASE OF [place] CORONARY ARTERY W/O ANG PCTRS Status: Chronic Current Visit: Yes (14) PVD (peripheral vascular disease) SNOMED Code(s): 229156476 Code(s): I73.9 - PERIPHERAL VASCULAR DISEASE, UNSPECIFIED Status: Chronic Current Visit: Yes (15) History of coronary artery stent placement SNOMED Code(s): 547441431, 005654503 Code(s): Z95.5 - PRESENCE OF CORONARY ANGIOPLASTY IMPLANT AND GRAFT Status : Chronic Current Visit: Yes (16) S/P peripheral artery angioplasty with stent placement SNOMED Code(s): 79147275577866857, 37107736567843329 Code(s): Z95.820 - PERIPHERAL VASCULAR ANGIOPLASTY STATUS W IMPLANTS AND GRAFTS Status: Chronic Current Visit: Yes (17) Diabetes type 2, controlled SNOMED Code(s): 06297025, 877981829 Code(s): E11.9 - TYPE 2 DIABETES MELLITUS WITHOUT COMPLICATIONS Status: Chronic Current Visit: Yes Qualifiers: Diabetes mellitus long chain beamer insulin use: without long chain beamer use - Problem List Review Problem List Initiated/Reviewed/Updated: Yes - My Orders Last 24 Hours: My Active Orders 07/07/19 11:13 Consult to Hospice [CONS] Routine 07/07/19 11:22 [place] Discontinue [Cardiac Monitoring Discontinue] [RC] Click to Edit 07/07/19 Lunch Regular Diet [DIET] 07/09/19 05:11 BMP [BASIC METABOLIC PANEL,BMP] [CHEM] AM - Plan Plan:: This 88 year old male admitted with acute respiratory failure with hypoxia, CAP , dehydration and LENNY 1. 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 CT revealed mass like consolidation in RU lobe measuring 7 cm, consideration is necrotic pulmonary malignancy. Large R pleural effusion with pleural soft tissue nodules noted, consistent with malignant effusion and pleural metastasis. CT abdomen revealed innumerable nodules to liver, consistent with metastasis. Discussed findings with Taz and his son Phillip at bedside this morning. He was given option of transfer for further diagnosis of lung mass/fluid and liver mets. He requests palliative care. Will add Morphine today. Stop other treatments keep medications for comfort. Oxygen PRN shortness of breath 2. LENNY: no improvement, anuric overnight. Bladder scan today 56 mls in bladder. notes renal failure. Taz and son informed about renal failure. Dispo: Plan for [facility] swing bed in am. Code Status: Comfort, DNR/DNI
[2019-07-08] MEDS ORDERED: Morphine Oral Concentrate 20 MG/ML 30 ML Bottle PO PRN (08:57)
[2019-07-08] MEDS: Morphine 10 MG/0.5 ML Oral Syringe PO PRN ×3 (09:49→20:53)
[2019-07-08] MEDS: Doxycycline 100 MG Cap PO SCH (09:49)
--- NOTE | 2019-07-08 13:43 | PCM.SN ---
- Free Text/Narrative Note: Spoke with Dr. Jaime Perez regarding admission to swing bed in [place] tomorrow. He is aware of patient. [facility] will be here to take Taz to [place] tomorrow 0ct 11 at 11 am.
[2019-07-09] MEDS: Morphine 10 MG/0.5 ML Oral Syringe PO PRN ×4 (01:36→22:52)
--- NOTE | 2019-07-09 11:39 | PCM.PN ---
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 Family at bedside. - Review of Systems Systems Review Comment:: unable to obtain as patient was lethargic and is hard of hearing - Patient Data Vitals - Most Recent: Last Vital Signs Temp 36.4 C 07/09/19 08:15 Pulse 56 L 07/09/19 08:15 Resp 20 07/09/19 08:15 BP 147/65 H 07/09/19 08:15 Pulse Ox 94 L 07/09/19 08:15 Weight - Most Recent: 152 lb 1.6 oz I&O - Last 24 Hours: Intake & Output 07/08/19 07/09/19 07/09/19 22:59 06:59 14:59 Intake Total 200 100 Output Total 0 50 Balance 200 50 Phong Results Last 24 Hours: Microbiology 07/07/19 00:15 Gram Stain - Final Sputum - Expectorated Sputum Culture - Final Staphylococcus Aureus Normal Respiratory Lori 07/06/19 16:37 Aerobic Blood Culture - Preliminary Blood - Venous - Lab Draw NO GROWTH AFTER 2 DAYS Anaerobic Blood Culture - Preliminary NO GROWTH AFTER 2 DAYS 07/06/19 16:25 Aerobic Blood Culture - Preliminary Blood - Venous NO GROWTH AFTER 2 DAYS Anaerobic Blood Culture - Preliminary NO GROWTH AFTER 2 DAYS Med Orders - Current: Current Medications Acetaminophen (Tylenol) 650 mg PO Q4H PRN PRN Reason: Pain (mild 1-3) Albuterol/Ipratropium (Duoneb 3.0-0.5 Mg/3 Ml) 3 ml NEB Q4HRRT PRN PRN Reason: Shortness Of Breath/wheezing Morphine Sulfate (Morphine 10 Mg/0.5 Ml Oral Syringe) 5 mg PO Q2H PRN PRN Reason: SOB/pain/restlessness Last Admin: 07/09/19 09:38 Dose: 5 mg Ondansetron HCl (Zofran) 4 mg IVPUSH Q4H PRN PRN Reason: Nausea Sodium Chloride (Saline Flush) 2.5 ml FLUSH ASDIRECTED PRN PRN Reason: Keep Vein Open Discontinued Medications Doxycycline Hyclate (Vibramycin) 100 mg PO BID [facility] Last Admin: 07/08/19 09:49 Dose: 100 mg Heparin Sodium (Porcine) (Heparin Sodium) 5,000 units SUBCUT Q12H [facility] Last Admin: 07/08/19 04:18 Dose: 5,000 units Sodium Chloride (Normal Saline) 1,000 mls @ 75 mls/hr IV ASDIRECTED [facility] Last Admin: 07/07/19 16:45 Dose: 75 mls/hr Ceftriaxone Sodium/Dextrose 1 (gm/ Premix) 50 mls @ 100 mls/hr IV Q24H [facility] Last Admin: 07/07/19 16:45 Dose: 100 mls/hr Sodium Chloride (Normal Saline) 250 mls @ 999 mls/hr IV ASDIRECTED [facility] Stop: 07/06/19 17:01 Influenza Virus Vaccine (Pharmacy To Dose - Influenza Vaccine) 1 each IM ONETIME ONE Stop: 07/06/19 17:33 Influenza Virus Vaccine (Fluzone High-Dose 2019-20 Syringe) 180 mcg IM .ONCE ONE Stop: 07/06/19 17:46 Insulin Aspart (Novolog) 0 unit SUBCUT TIDAC [facility]; Protocol Last Admin: 07/07/19 06:41 Dose: Not Given Morphine Sulfate (Morphine) 1 mg IVPUSH Q4H PRN PRN Reason: Pain Morphine Sulfate (Morphine 20 Mg/Ml Soln) 5 mg PO Q2H PRN PRN Reason: SOB/pain/restlessness Multivitamins/Minerals/Vitamin C (Tab-A-Jaci) 1 tab PO DAILY [facility] Last Admin: 07/07/19 08:13 Dose: 1 tab Lutein/Minerals/Vit (A,C & E) 1 each PO DAILY [facility] Last Admin: 07/07/19 08:13 Dose: Not Given - Exam General: Sedated, Lethargic. No: Alert, Oriented Neck: Supple, Trachea Midline Lungs: Clear to Auscultation, Decreased Breath Sounds Cardiovascular: Regular Rate, Regular Rhythm GI/Abdominal Exam: Normal Bowel Sounds, Guarding Extremities: Normal Inspection, Pallor Peripheral Pulses: 3+: Dorsalis Pedis (L), Dorsalis Pedis (R) Skin: Warm Psy/Mental Status: No: Alert, Anxious, Suicidal Ideation, Homicidal Ideation, Hallucinations - Problem List & Annotations (1) Acute kidney injury SNOMED Code(s): 20335313, 27291686 Code(s): N17.9 - ACUTE KIDNEY FAILURE, UNSPECIFIED Status: Acute Current Visit: Yes (2) Acute respiratory failure with hypoxia SNOMED Code(s): 99411131, 196861650 Code(s): J96.01 - ACUTE RESPIRATORY FAILURE WITH HYPOXIA Status: Acute Current Visit: Yes (3) Comfort measures only status SNOMED Code(s): 90166990177476 Code(s): Z51.5 - ENCOUNTER FOR PALLIATIVE CARE Status: Acute Current Visit: Yes (4) Community acquired pneumonia SNOMED Code(s): 186041813 Code(s): J18.9 - PNEUMONIA, UNSPECIFIED ORGANISM Status: Acute Current Visit: Yes Qualifiers: Laterality: right Lung location: upper lobe of lung Qualified Code(s): J18.1 - Lobar pneumonia, unspecified organism (5) Liver metastasis Status: Acute Current Visit: Yes - Problem List Review Problem List Initiated/Reviewed/Updated: Yes - Plan Plan:: This 88 year old male admitted with acute respiratory failure with hypoxia, CAP , dehydration and LENNY 1. 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 CT revealed mass like consolidation in RU lobe measuring 7 cm, consideration is necrotic pulmonary malignancy. Large R pleural effusion with pleural soft tissue nodules noted, consistent with malignant effusion and pleural metastasis. CT abdomen revealed innumerable nodules to liver, consistent with metastasis. Patient and family was given option of transfer for further diagnosis of lung mass/fluid and liver mets but He requests palliative care. tonie cont Morphine. Other treatments have been stopped and will keep medications for comfort. Oxygen PRN shortness of breath. Plan was to transfer to swing bed facility for hospice but today patient was more obtunded likely due to morphine. Due to the concern of airway protection on route the transfer was held. Will cont comfort care, reassess if atble enough for transfer by Friday as trnafer not possible over weekend per CM. Code Status: Comfort, DNR/DNI
[2019-07-10] MEDS: Morphine 10 MG/0.5 ML Oral Syringe PO PRN ×6 (00:38→20:46)
--- NOTE | 2019-07-10 10:18 | PCM.PN ---
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 Family at bedside. - Review of Systems Systems Review Comment:: unable to obtain - Patient Data Vitals - Most Recent: Last Vital Signs Temp 36.4 C 07/09/19 08:15 Pulse 56 L 07/09/19 22:45 Resp 18 07/09/19 22:45 BP 122/57 L 07/09/19 22:45 Pulse Ox 93 L 07/09/19 22:45 Weight - Most Recent: 152 lb 1.6 oz I&O - Last 24 Hours: Intake & Output 07/09/19 07/10/19 07/10/19 22:59 06:59 14:59 Intake Total 0 0 Output Total 0 0 Balance 0 0 Phong Results Last 24 Hours: Microbiology 07/06/19 16:37 Aerobic Blood Culture - Preliminary Blood - Venous - Lab Draw NO GROWTH AFTER 3 DAYS Anaerobic Blood Culture - Preliminary NO GROWTH AFTER 3 DAYS 07/06/19 16:25 Aerobic Blood Culture - Preliminary Blood - Venous NO GROWTH AFTER 3 DAYS Anaerobic Blood Culture - Preliminary NO GROWTH AFTER 3 DAYS 07/07/19 00:15 Gram Stain - Final Sputum - Expectorated Sputum Culture - Final Staphylococcus Aureus Normal Respiratory Lori Med Orders - Current: Current Medications Acetaminophen (Tylenol) 650 mg PO Q4H PRN PRN Reason: Pain (mild 1-3) Albuterol/Ipratropium (Duoneb 3.0-0.5 Mg/3 Ml) 3 ml NEB Q4HRRT PRN PRN Reason: Shortness Of Breath/wheezing Morphine Sulfate (Morphine 10 Mg/0.5 Ml Oral Syringe) 5 mg PO Q2H PRN PRN Reason: SOB/pain/restlessness Last Admin: 07/10/19 06:00 Dose: 5 mg Ondansetron HCl (Zofran) 4 mg IVPUSH Q4H PRN PRN Reason: Nausea Sodium Chloride (Saline Flush) 2.5 ml FLUSH ASDIRECTED PRN PRN Reason: Keep Vein Open Discontinued Medications Doxycycline Hyclate (Vibramycin) 100 mg PO BID [facility] Last Admin: 07/08/19 09:49 Dose: 100 mg Heparin Sodium (Porcine) (Heparin Sodium) 5,000 units SUBCUT Q12H [facility] Last Admin: 07/08/19 04:18 Dose: 5,000 units Sodium Chloride (Normal Saline) 1,000 mls @ 75 mls/hr IV ASDIRECTED [facility] Last Admin: 07/07/19 16:45 Dose: 75 mls/hr Ceftriaxone Sodium/Dextrose 1 (gm/ Premix) 50 mls @ 100 mls/hr IV Q24H [facility] Last Admin: 07/07/19 16:45 Dose: 100 mls/hr Sodium Chloride (Normal Saline) 250 mls @ 999 mls/hr IV ASDIRECTED [facility] Stop: 07/06/19 17:01 Influenza Virus Vaccine (Pharmacy To Dose - Influenza Vaccine) 1 each IM ONETIME ONE Stop: 07/06/19 17:33 Influenza Virus Vaccine (Fluzone High-Dose Syringe) 180 mcg IM .ONCE ONE Stop: 07/06/19 17:46 Insulin Aspart (Novolog) 0 unit SUBCUT TIDAC [facility]; Protocol Last Admin: 07/07/19 06:41 Dose: Not Given Morphine Sulfate (Morphine) 1 mg IVPUSH Q4H PRN PRN Reason: Pain Morphine Sulfate (Morphine 20 Mg/Ml Soln) 5 mg PO Q2H PRN PRN Reason: SOB/pain/restlessness Multivitamins/Minerals/Vitamin C (Tab-A-Jaci) 1 tab PO DAILY [facility] Last Admin: 07/07/19 08:13 Dose: 1 tab Lutein/Minerals/Vit (A,C & E) 1 each PO DAILY [facility] Last Admin: 07/07/19 08:13 Dose: Not Given - Exam General: Sedated Neck: Supple, Trachea Midline Lungs: Decreased Breath Sounds Cardiovascular: Regular Rate, Regular Rhythm GI/Abdominal Exam: Normal Bowel Sounds, Soft Extremities: Normal Inspection Peripheral Pulses: 2+: Dorsalis Pedis (L), Dorsalis Pedis (R) - Problem List & Annotations (1) Acute kidney injury SNOMED Code(s): 47634546, 98922934 Code(s): N17.9 - ACUTE KIDNEY FAILURE, UNSPECIFIED Status: Acute Current Visit: Yes (2) Acute respiratory failure with hypoxia SNOMED Code(s): 24577630, 538698010 Code(s): J96.01 - ACUTE RESPIRATORY FAILURE WITH HYPOXIA Status: Acute Current Visit: Yes (3) Comfort measures only status SNOMED Code(s): 46707574364930 Code(s): Z51.5 - ENCOUNTER FOR PALLIATIVE CARE Status: Acute Current Visit: Yes (4) Community acquired pneumonia SNOMED Code(s): 060187814 Code(s): J18.9 - PNEUMONIA, UNSPECIFIED ORGANISM Status: Acute Current Visit: Yes Qualifiers: Laterality: right Lung location: upper lobe of lung Qualified Code(s): J18.1 - Lobar pneumonia, unspecified organism (5) Liver metastasis Status: Acute Current Visit: Yes - Problem List Review Problem List Initiated/Reviewed/Updated: Yes - Plan Plan:: This 88 year old male admitted with acute respiratory failure with hypoxia, CAP , dehydration ,LENNY, 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 tonie cont Morphine. Other treatments have been stopped and will keep medications for comfort. Oxygen PRN shortness of breath. Plan was to transfer to swing bed facility for hospice but yesterday patient was more obtunded likely due to morphine. Due to the concern of airway protection on route the transfer was held. Will cont comfort care, reassess if stable enough for transfer by Friday as transfer not possible over weekend per CM. . Code Status: Comfort, DNR/DNI
--- NOTE | 2019-07-11 11:24 | PCM.PN ---
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 Family at bedside. - Review of Systems Systems Review Comment:: unable to obtain - Patient Data Vitals - Most Recent: Last Vital Signs Temp 36.1 C 07/11/19 09:07 Pulse 58 L 07/11/19 09:07 Resp 20 07/11/19 09:07 BP 107/51 L 07/11/19 09:07 Pulse Ox 94 L 07/11/19 09:07 Weight - Most Recent: 68.991 kg I&O - Last 24 Hours: Intake & Output 07/10/19 07/11/19 07/11/19 22:59 06:59 14:59 Intake Total 0 0 Output Total 0 0 Balance 0 0 Phong Results Last 24 Hours: Microbiology 07/06/19 16:37 Aerobic Blood Culture - Preliminary Blood - Venous - Lab Draw NO GROWTH AFTER 4 DAYS Anaerobic Blood Culture - Preliminary NO GROWTH AFTER 4 DAYS 07/06/19 16:25 Aerobic Blood Culture - Preliminary Blood - Venous NO GROWTH AFTER 4 DAYS Anaerobic Blood Culture - Preliminary NO GROWTH AFTER 4 DAYS Med Orders - Current: Current Medications Acetaminophen (Tylenol) 650 mg PO Q4H PRN PRN Reason: Pain (mild 1-3) Albuterol/Ipratropium (Duoneb 3.0-0.5 Mg/3 Ml) 3 ml NEB Q4HRRT PRN PRN Reason: Shortness Of Breath/wheezing Morphine Sulfate (Morphine 10 Mg/0.5 Ml Oral Syringe) 5 mg PO Q2H PRN PRN Reason: SOB/pain/restlessness Last Admin: 07/10/19 20:46 Dose: 5 mg Ondansetron HCl (Zofran) 4 mg IVPUSH Q4H PRN PRN Reason: Nausea Sodium Chloride (Saline Flush) 2.5 ml FLUSH ASDIRECTED PRN PRN Reason: Keep Vein Open Discontinued Medications Doxycycline Hyclate (Vibramycin) 100 mg PO BID [facility] Last Admin: 07/08/19 09:49 Dose: 100 mg Heparin Sodium (Porcine) (Heparin Sodium) 5,000 units SUBCUT Q12H [facility] Last Admin: 07/08/19 04:18 Dose: 5,000 units Sodium Chloride (Normal Saline) 1,000 mls @ 75 mls/hr IV ASDIRECTED [facility] Last Admin: 07/07/19 16:45 Dose: 75 mls/hr Ceftriaxone Sodium/Dextrose 1 (gm/ Premix) 50 mls @ 100 mls/hr IV Q24H [facility] Last Admin: 07/07/19 16:45 Dose: 100 mls/hr Sodium Chloride (Normal Saline) 250 mls @ 999 mls/hr IV ASDIRECTED [facility] Stop: 07/06/19 17:01 Influenza Virus Vaccine (Pharmacy To Dose - Influenza Vaccine) 1 each IM ONETIME ONE Stop: 07/06/19 17:33 Influenza Virus Vaccine (Fluzone High-Dose 2018- Syringe) 180 mcg IM .ONCE ONE Stop: 07/06/19 17:46 [facility] Last Admin: 07/07/19 06:41 Dose: Not Given Morphine Sulfate (Morphine) 1 mg IVPUSH Q4H PRN PRN Reason: Pain Morphine Sulfate (Morphine 20 Mg/Ml Soln) 5 mg PO Q2H PRN PRN Reason: SOB/pain/restlessness Multivitamins/Minerals/Vitamin C (Tab-A-Jaci) 1 tab PO DAILY [facility] Last Admin: 07/07/19 08:13 Dose: 1 tab Lutein/Minerals/Vit (A,C & E) 1 each PO DAILY [facility] Last Admin: 07/07/19 08:13 Dose: Not Given - Exam General: No Acute Distress. No: Alert, Oriented Neck: Supple, Trachea Midline Lungs: Decreased Breath Sounds, Rales Cardiovascular: Regular Rate, Regular Rhythm GI/Abdominal Exam: Soft, No Distention Skin: Warm, Dry - Problem List & Annotations (1) Acute kidney injury SNOMED Code(s): 30313813, 54659667 Code(s): N17.9 - ACUTE KIDNEY FAILURE, UNSPECIFIED Status: Acute Current Visit: Yes (2) Acute respiratory failure with hypoxia SNOMED Code(s): 70044767, 219906933 Code(s): J96.01 - ACUTE RESPIRATORY FAILURE WITH HYPOXIA Status: Acute Current Visit: Yes (3) Comfort measures only status SNOMED Code(s): 53125452331237 Code(s): Z51.5 - ENCOUNTER FOR PALLIATIVE CARE Status: Acute Current Visit: Yes (4) Community acquired pneumonia SNOMED Code(s): 753054297 Code(s): J18.9 - PNEUMONIA, UNSPECIFIED ORGANISM Status: Acute Current Visit: Yes Qualifiers: Laterality: right Lung location: upper lobe of lung Qualified Code(s): J18.1 - Lobar pneumonia, unspecified organism (5) Liver metastasis Status: Acute Current Visit: Yes - Problem List Review Problem List Initiated/Reviewed/Updated: Yes - Plan Plan:: This 88 year old male admitted with acute respiratory failure with hypoxia, CAP , dehydration ,LENNY, 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 Patient and family was given option of transfer for further diagnosis of lung mass/fluid and liver mets but He requests palliative care. will cont Morphine. Other treatments have been stopped and will keep medications for comfort. cont Oxygen PRN shortness of breath. Plan was to transfer to swing bed facility for hospice but patient seems to be towards end of life so will hold transfer Cont comfort care . Code Status: Comfort, DNR/DNI
[2019-07-11] MEDS: Morphine 10 MG/0.5 ML Oral Syringe PO PRN (17:23)
--- NOTE | 2019-07-14 15:00 | PCM.DCSUM1 ---
Discharge Summary - Hospital Course Diagnosis: Stroke: No Modified [place] Scale: No Symptoms at All Modified [place] Scale Score: 0 - Discharge Data Discharge Disposition: 20 Condition: - Referral to Home Health Primary Care Physician: Lambert Huston MD - Discharge Diagnosis/Problem(s) (1) Acute kidney injury SNOMED Code(s): 62675614, 76659169 ICD Code: N17.9 - ACUTE KIDNEY FAILURE, UNSPECIFIED Status: Acute (2) Acute respiratory failure with hypoxia SNOMED Code(s): 61875649, 843863280 ICD Code: J96.01 - ACUTE RESPIRATORY FAILURE WITH HYPOXIA Status: Acute (3) Comfort measures only status SNOMED Code(s): 93696861354209 ICD Code: Z51.5 - ENCOUNTER FOR PALLIATIVE CARE Status: Acute (4) Community acquired pneumonia SNOMED Code(s): 321105559 ICD Code: J18.9 - PNEUMONIA, UNSPECIFIED ORGANISM Status: Acute Qualifiers: Laterality: right Lung location: upper lobe of lung Qualified Code(s): J18.1 - Lobar pneumonia, unspecified organism (5) Liver metastasis Status: Acute - Patient Summary/Data Consults: Consultations 07/07/19 11:13 Consult to Hospice [CONS] Routine - Patient Instructions Diet: Regular Diet as Tolerated Activity: As Tolerated Showering/Bathing: May Shower Other/Special Instructions: Comfort Measures, medication adjustment. PT to evaluate - Discharge Plan *PRESCRIPTION DRUG MONITORING PROGRAM REVIEWED*: Not Applicable *COPY OF PRESCRIPTION DRUG MONITORING REPORT IN PATIENT GINO: Not Applicable Home Medications: Home Meds Acetaminophen [Tylenol] 650 mg PO Q4H PRN tablet 07/08/19 [Rx] Morphine [Morphine 10 MG/0.5 ML Oral Syringe] 5 mg PO Q2H PRN syringe 07/08/19 [Rx] Oxygen Therapy Mode: Nasal Cannula Referrals: [facility] [Outside] Randall Alexander MD [Physician] - 07/19/19 10:15 am - Patient Data Vitals - Most Recent: Last Vital Signs Temp 36.1 C 07/11/19 09:07 Pulse 58 L 07/11/19 09:07 Resp 20 07/11/19 09:07 BP 107/51 L 07/11/19 09:07 Pulse Ox 94 L 07/11/19 09:07 Weight - Most Recent: 68.991 kg Med Orders - Current: Current Medications Discontinued Medications Acetaminophen (Tylenol) 650 mg PO Q4H PRN PRN Reason: Pain (mild 1-3) Albuterol/Ipratropium (Duoneb 3.0-0.5 Mg/3 Ml) 3 ml NEB Q4HRRT PRN PRN Reason: Shortness Of Breath/wheezing Doxycycline Hyclate (Vibramycin) 100 mg PO BID [facility] Last Admin: 07/08/19 09:49 Dose: 100 mg Heparin Sodium (Porcine) (Heparin Sodium) 5,000 units SUBCUT Q12H [facility] Last Admin: 07/08/19 04:18 Dose: 5,000 units Sodium Chloride (Normal Saline) 1,000 mls @ 75 mls/hr IV ASDIRECTED [facility] Last Admin: 07/07/19 16:45 Dose: 75 mls/hr Ceftriaxone Sodium/Dextrose 1 (gm/ Premix) 50 mls @ 100 mls/hr IV Q24H [facility] Last Admin: 07/07/19 16:45 Dose: 100 mls/hr Sodium Chloride (Normal Saline) 250 mls @ 999 mls/hr IV ASDIRECTED [facility] Stop: 07/06/19 17:01 Influenza Virus Vaccine (Pharmacy To Dose - Influenza Vaccine) 1 each IM ONETIME ONE Stop: 07/06/19 17:33 Influenza Virus Vaccine (Fluzone High-Dose Syringe) 180 mcg IM .ONCE ONE Stop: 07/06/19 17:46 Insulin Aspart (Novolog) 0 unit SUBCUT TIDAC [facility]; Protocol Last Admin: 07/07/19 06:41 Dose: Not Given Morphine Sulfate (Morphine) 1 mg IVPUSH Q4H PRN PRN Reason: Pain Morphine Sulfate (Morphine 20 Mg/Ml Soln) 5 mg PO Q2H PRN PRN Reason: SOB/pain/restlessness Morphine Sulfate (Morphine 10 Mg/0.5 Ml Oral Syringe) 5 mg PO Q2H PRN PRN Reason: SOB/pain/restlessness Last Admin: 07/11/19 17:23 Dose: 5 mg Multivitamins/Minerals/Vitamin C (Tab-A-Jaci) 1 tab PO DAILY [facility] Last Admin: 07/07/19 08:13 Dose: 1 tab Ondansetron HCl (Zofran) 4 mg IVPUSH Q4H PRN PRN Reason: Nausea Lutein/Minerals/Vit (A,C & E) 1 each PO DAILY [facility] Last Admin: 07/07/19 08:13 Dose: Not Given Sodium Chloride (Saline Flush) 2.5 ml FLUSH ASDIRECTED PRN PRN Reason: Keep Vein Open
== END 2019-07-11 23:15 | disposition expired | DRG 193 ==
LOC: MW.MS 15:27
PROVIDERS: ADMIT Internal Medicine; ATTEND Internal Medicine
DX: J18.1 Lobar pneumonia, unspecified organism (principal); J96.01 Acute respiratory failure with hypoxia; N17.9 Acute kidney failure, unspecified; J90 Pleural effusion, not elsewhere classified; C34.90 Malignant neoplasm of unspecified part of unspecified bronchus or lung; C78.7 Secondary malignant neoplasm of liver and intrahepatic bile duct; Z51.5 Encounter for palliative care; Z66 Do not resuscitate; I12.9 Hypertensive chronic kidney disease with stage 1 through stage 4 chronic kidney disease, or unspecified chronic kidney disease; N18.9 Chronic kidney disease, unspecified; E11.22 Type 2 diabetes mellitus with diabetic chronic kidney disease; E78.5 Hyperlipidemia, unspecified; E78.00 Pure hypercholesterolemia, unspecified; R62.7 Adult failure to thrive; R19.7 Diarrhea, unspecified; R53.1 Weakness; R74.0 Nonspecific elevation of levels of transaminase and lactic acid dehydrogenase [LDH]; I25.10 Atherosclerotic heart disease of native coronary artery without angina pectoris; I73.9 Peripheral vascular disease, unspecified; E86.0 Dehydration; Z88.6 Allergy status to analgesic agent; Z79.899 Other long term (current) drug therapy; Z79.84 Long term (current) use of oral hypoglycemic drugs; Z68.23 Body mass index [BMI] 23.0-23.9, adult; Z85.46 Personal history of malignant neoplasm of prostate; Z95.5 Presence of coronary angioplasty implant and graft; Z87.891 Personal history of nicotine dependence; Z95.820 Peripheral vascular angioplasty status with implants and grafts; Z85.828 Personal history of other malignant neoplasm of skin; Z92.3 Personal history of irradiation
CPT/HCPCS: 36415; 71250; 71250-26; 74176; 74176-26; 80048; 82962; 83605; 84484; 85025; 87040; 87070; 87077; 87186; 87205; 93005; A9270-GY; J0696; J1644; J1815-GY; J7040